=== PATIENT | female | born 1960 | race Caucasian/White ===

== ENCOUNTER 2024-07-11 09:48 | Day surgery (SDC) | payer MEDICARE, MEDICAID ==
[~2024-07-11] VITALS: Ht 144.8 cm; Wt 140.0 kg
[~2024-07-11 09:48] MED LIST: LOSA25TA41 PO; MONT-40 PO
[2024-07-11] MEDS ORDERED: simethicone 40mg/0.6ml oral drops 30ml ONE (10:10)
[2024-07-11 10:19] VITALS: BP 161/84; PULSE 85; RESP 16
[2024-07-11] MEDS ORDERED: fentaNYL/PF 50MCG/1 ML 2ML syringe ONE (10:57)
[2024-07-11] MEDS ORDERED: MIDAZolam 1 MG/ML 5ML VIAL ONE (10:57)
[2024-07-11 10:58] VITALS: BP 158/69; PULSE 81; RESP 18; O2SAT 99
[2024-07-11] MEDS ORDERED: diphenhydrAMINE 50 mg/ml inj ONE (10:58)
[2024-07-11 11:20] VITALS: BP 111/64; PULSE 76; RESP 13; O2SAT 100
[2024-07-11 11:30] VITALS: BP 128/67; PULSE 69; RESP 12; O2SAT 100
[2024-07-11 11:40] VITALS: BP 124/61; PULSE 71; RESP 15; O2SAT 99
[2024-07-11 11:50] VITALS: BP 135/63; PULSE 61; RESP 14; O2SAT 99
== END 2024-07-11 12:05 | disposition home or self-care (01) ==
LOC: GI LAB 09:48
PROVIDERS: ATTEND Internal Medicine Gastroenterology
DX: R19.5 Other fecal abnormalities (principal); D12.3 Benign neoplasm of transverse colon; D12.4 Benign neoplasm of descending colon; K57.30 Diverticulosis of large intestine without perforation or abscess without bleeding
CPT/HCPCS: 45385; A4620; C1889; G0500; J2250; J3010; J7030; Z7512; 88305; 99152; 99153; J1200